=== PATIENT | male | born 1985 | race Caucasian/White ===

== ENCOUNTER 2019-06-19 23:49 | Emergency (ER) | payer BC ==
[~2019-06-19] VITALS: Ht 177.8 cm; Wt 96.2 kg
[2019-06-20 00:03] VITALS: BP 127/81
--- NOTE | 2019-06-20 00:09 | NUR ---
PT AMBULATES TO BED 11 WITH STEADY GAIT. ACCOMPANYING.
--- NOTE | 2019-06-20 00:30 | NUR ---
PT CAME TO ER C/O LEFT HEEL PAIN SINCE 1699 YESTERDAY. PT DENIES INJURY OR TRAUMA. PER PT "I HAVE BEEN IN THE PROCESS OF MOVING." PAIN LEVEL 5/10, "STINGING." AREA IS RED WITHOUT SWELLING. NKA. NO MED HX. SAFETY MEASURES IN PLACE.
[2019-06-20 00:53] VITALS: BP 127/81
--- NOTE | 2019-06-20 00:53 | NUR ---
Patient discharged with v/s stable. Written and verbal after care instructions given and explained. Pt encouraged to rest foot and apply ice. Patient alert, oriented and verbalized understanding of instructions. Ambulatory with steady gait. All questions addressed prior to discharge. ID band removed. Patient advised to follow up with PMD. Rx of MOTRIN was given. Patient educated on indication of medication including possible reaction and side effects. Opportunity to ask questions provided and answered.
== END 2019-06-20 00:53 | disposition home or self-care (01) ==
LOC: MED 23:49
DX: S86.012A Strain of left Achilles tendon, initial encounter (principal); X58.XXXA Exposure to other specified factors, initial encounter; Y93.02 Activity, running; Y92.89 Other specified places as the place of occurrence of the external cause; Y99.8 Other external cause status
CPT/HCPCS: 99282